=== PATIENT | female | born 1985 | race African-American/Black ===

== ENCOUNTER 2021-03-08 15:07 | Emergency (ER) | payer SELFPAY ==
[~2021-03-08] VITALS: Ht 172.7 cm; Wt 70.8 kg
--- NOTE | 2021-03-08 15:07 | NUR ---
PT BIB SELF C/O FEELING TIRED/WEAK SINCE 1300. PT IS AAOX4, NOT IN RESPIRATORY DISTRESS, V/S STABLE, KEPT RESTED AND COMFORTABLE. WILL CONTINUE TO MONITOR.
--- NOTE | 2021-03-08 15:54 | NUR ---
PT SEEN AND EXAMINED BY MARIANO HUYNH.
[2021-03-08 16:20] LABS: BILIRUBIN,URINE NEGATIVE (NEGATIVE); COLOR,URINE YELLOW (YELLOW); LEUKOCYTE ESTERASE ,URINE NEGATIVE (NEGATIVE); NITRITE, URINE NEGATIVE (NEGATIVE); PROTEIN,URINE NEGATIVE (NEGATIVE); UGLUCOSE NEGATIVE (NEGATIVE); UROBILINOGEN,URINE 0.2 EU/dL (0.2)
[2021-03-08 16:31] LABS: RED BLOOD CELL COUNT(AUTO) 4.55 MIL/uL (4.0-5.2); WHITE BLOOD COUNT (AUTO) 10.2 K/uL (4.3-11.0)
[2021-03-08 16:37] LABS: BASOPHILS # (AUTO) 0.1 K/uL (0.0-0.2); BASOPHILS % (AUTO) 0.6 % (0.0-2.0); EOSINOPHILS % (AUTO) 0.8 % (0.0-6.0); HEMATOCRIT 40 % (33-45); HEMOGLOBIN 13.1 g/dL (11.5-14.8); LYMPHOCYTES # (AUTO) 0.9 K/uL (0.8-4.8); LYMPHOCYTES % (AUTO) 9.1 % (20.0-44.0); MEAN CORPUSCULAR HGB CONC 32 g/dl (31.0-36.0); MEAN CORPUSCULAR VOLUME 89 fL (82-100); MONOCYTES # (AUTO) 0.6 K/uL (0.1-1.30); MONOCYTES % (AUTO) 5.7 % (2.0-12.0); NEUTROPHILS # (AUTO) 8.6 K/uL (1.8-8.9); NEUTROPHILS % (AUTO) 83.8 % (43.0-81.0); PLATELET COUNT (AUTO) 311 K/uL (150-450)
[2021-03-08] MEDS: IV NS 0.9% 1,000 ML BAG IV ONE (16:40)
[2021-03-08 16:44] LABS: CALCIUM, SERUM 9.2 mg/dL (8.5-10.1); CREATININE 0.9 mg/dL (0.6-1.3); POTASSIUM 4.6 mmol/L (3.5-5.1)
--- NOTE | 2021-03-08 18:10 | NUR ---
IV removed. Catheter intact and site benign. Pressure and 4x4 applied to site. No bleeding noted. Patient discharged to home in stable condition. Written and verbal after care instructions given. Patient verbalizes understanding of instruction.
[2021-03-08 18:12] VITALS: BP 125/81
== END 2021-03-08 18:13 | disposition home or self-care (01) ==
LOC: ER 15:29
DX: R53.1 Weakness (principal); Z20.822 Contact with and (suspected) exposure to COVID-19; R94.31 Abnormal electrocardiogram [ECG] [EKG]
CPT/HCPCS: 36415; 80048; 81003; 83690; 84703; 85025; 87426; 93005; 96360; 99284; C9803; J7030

== ENCOUNTER 2021-03-08 22:49 | Emergency (ER) | payer SELFPAY ==
[~2021-03-08] VITALS: Ht 172.7 cm; Wt 70.3 kg
[2021-03-08 23:16] VITALS: BP 122/79
== END 2021-03-08 23:44 | disposition home or self-care (01) ==
LOC: ER 22:53
DX: N95.1 Menopausal and female climacteric states (principal); R00.2 Palpitations; Z98.890 Other specified postprocedural states